=== PATIENT | male | born 1955 | race Caucasian/White ===

== ENCOUNTER 2016-11-24 10:08 | Day surgery (SDC) | payer MEDICARE ==
[~2016-11-24] VITALS: Ht 177.8 cm; Wt 109.8 kg
[~2016-11-24 10:08] MED LIST: fentaNYL-PF 50 mCg/mL 2 mL Inj IVPUSH PRN; no meds
[2016-11-24] MEDS ORDERED: 0.9% Sodium Chloride 1,000 ML ONE (10:37)
[2016-11-24 10:49] VITALS: BP 166/94; PULSE 95; RESP 17; O2SAT 95
[2016-11-24 11:39] VITALS: BP 107/84; PULSE 89; RESP 14; O2SAT 95
[2016-11-24 11:49] VITALS: BP 120/74; PULSE 81; RESP 14; O2SAT 92
[2016-11-24 11:59] VITALS: BP 131/91; PULSE 93; RESP 15; O2SAT 93
[2016-11-24 12:09] VITALS: BP 136/93; PULSE 90; RESP 15; O2SAT 93
[2016-11-24 12:19] VITALS: BP 144/88; PULSE 93; RESP 15; O2SAT 93
--- NOTE | 2016-11-24 13:58 | ENDO ---
[address] [address] ENDOSCOPY PROCEDURE PATIENT: PAULY LEMUS : 1955 MR#: [id number] ADMIT: 11/24/2016 JOB ID: [id number] DATE OF SERVICE: 11/24/2016 TYPE OF OPERATION: 1. Esophagogastroduodenoscopy with biopsy. 2. Colonoscopy. PREOPERATIVE DIAGNOSIS(ES): Rectal bleeding. POSTOPERATIVE DIAGNOSIS(ES): 1. Multiple duodenal ulcers at the bulb, pinpoint, largest size 1 mm, status post biopsy. 2. Mild nonerosive gastritis. 3. Diverticulosis, mild, of the sigmoid colon. ANESTHESIA: Fentanyl 125 mcg and Versed 6 mg IV administered. COMPLICATIONS: None. BLOOD LOSS: Minimal. DESCRIPTION OF PROCEDURE: After risks and benefits explained to the patient, informed consent was obtained. After anesthesia administered, an upper endoscope was then inserted in the mouth, intubated into the esophagus, stomach, second portion of duodenum. Mucosa carefully examined. After procedure done, scope withdrawn and procedure terminated. A colonoscope was then inserted from the rectum to the cecum. Mucosa carefully examined. Prep of the patient was suboptimal. After procedure done, the scope was withdrawn and the procedure terminated. FINDINGS: Upon inspection of the esophagus, esophagus was normal without masses, ulcers, or lesions. Z-line located at 40 cm from incisors. Upon entering stomach, there was mild nonerosive gastritis that was seen throughout the entire stomach. Retroflexion was normal. At the duodenal bulb, clean-based, nonbleeding ulcers noted, largest size 1 mm in diameter. Duodenum, first and second portions were normal. Biopsies taken at the duodenal bulb, antrum, body of the stomach. Upon inspection of the anus, no masses, hemorrhoids, ulcers, or fissures that were seen. Throughout the entire examination there was mild sigmoid diverticulosis. The prep was suboptimal with various parts of liquid stool that were seen. Retroflexion was normal. IMPRESSIONS: 1. Suboptimal prep. 2. Mild nonerosive gastritis. 3. Multiple bulbar duodenal ulcers, pinpoint, nonbleeding, clean based. 4. Mild sigmoid diverticulosis. RECOMMENDATIONS: 1. Await pathology results. 2. Start Carafate 1 g by mouth 4 times a day, Protonix 40 mg by mouth twice a day. 3. Would recommend future colonoscopies with two day prep. 4. Follow up in GI clinic as needed.
[2016-11-25] MEDS ORDERED: Sodium Chloride LOK Flush 10 mL Syringe IV PRN (06:00)
[2016-11-25] MEDS ORDERED: 0.9% Sodium Chloride 1,000 ML IV SCH (06:00)
--- NOTE | 2016-11-27 14:18 | PATH ---
SURGICAL PATHOLOGY Attending Physician:Lui Davila MD CASE STATUS: Signed Out PATIENT NAME: PAULY LEMUS PID: [id number] : 1955 DATE COLLECTED:11/24/2016 21:06 SPECIMEN: 1: Gastric, Biopsy 2: Stomach, Antrum, Biopsy 3: Duodenum, Biopsy CLINICAL HISTORY: RECTAL BLEEDING, GASTRITIS, DUODENITIS 1). GASTRIC BODY BIOPSY 2). ANTRAL BIOPSY 3). DUODENAL BIOPSY FINAL DIAGNOSIS: 1.GASTRIC BODY BIOPSY: DIFFUSE MILD CHRONIC GASTRITIS INVOLVING FUNDIC MUCOSA. Negative for evidence of Helicobacter. Negative for intestinal metaplasia. Negative for dysplasia and malignancy. 2.GASTRIC ANTRAL BIOPSY: DIFFUSE MILD CHRONIC GASTRITIS INVOLVING ANTRAL MUCOSA. Negative for evidence of Helicobacter. Negative for intestinal metaplasia. Negative for dysplasia and malignancy. 3.DUODENAL BIOPSY: CHANGES OF MILD CHRONIC DUODENITIS. Negative for evidence of celiac disease. Negative for dysplasia and malignancy. ICD10 code K29.70 GROSS DESCRIPTION: Received are three formalin-filled containers, each labeled with the patient' s name. 1. Received in formalin, labeled with the patient' s name and "gastric body BX", is one fragment of francis, soft tissue measuring 0.3 x 0.2 x 0.2 cm. The fragment is totally submitted in cassette 1A. 2. Received in formalin, labeled with the patient' s name and "antral BX", is one fragment of francis, soft tissue measuring 0.2 x 0.1 x 0.1 cm. The fragment is totally submitted in cassette 2A. 3. Received in formalin, labeled with the patient' s name and "duodenal BX", is one fragment of francis, soft tissue measuring 0.3 x 0.3 x 0.2 cm. The fragment is totally submitted in cassette 3A. ([id number]) MICRO DESCRIPTION: See diagnosis. ICD-9 CODES: CPT CODES: 1: 88829 2: 51137 3: 95699 Electronically Signed Out Jeremias Chaudhari MD [facility] Pathology [facility] [address], [place] [address] Technical component performed at [facility], [facility] [address], [place], [address]
== END 2016-11-24 23:59 | disposition home or self-care (01) ==
LOC: END 10:08
PROVIDERS: ATTEND Internal Medicine Gastroenterology
DX: K62.5 Hemorrhage of anus and rectum (principal); K57.30 Diverticulosis of large intestine without perforation or abscess without bleeding; K59.00 Constipation, unspecified; K29.50 Unspecified chronic gastritis without bleeding; K29.80 Duodenitis without bleeding; M45.9 Ankylosing spondylitis of unspecified sites in spine
CPT/HCPCS: 43239; 45378; 88305; 99153; G0500; J2250; J3010; J7030